=== PATIENT | male | born 1990 | race Caucasian/White ===

== ENCOUNTER 2018-11-15 19:47 | Emergency (ER) | payer BC, OTHER ==
[2018-11-15 20:05] VITALS: BP 186/98
[2018-11-15] MEDS ORDERED: KETOROLAC TROMETHAMINE 60 MG/2 ML SDV IM ONE (20:52)
--- NOTE | 2018-11-15 20:54 | ER Document Report ---
ED Medical Screen (RME) - General Chief Complaint: Flank Pain Stated Complaint: BACK PAIN Time Seen by Provider: 11/15/18 20:52 Mode of Arrival: Ambulatory Information source: Patient Notes: 28-year-old male presented to ED for complaint of right flank pain. He states he came home from work and went to lay down and had sudden pain about 330 4:00. He states is very sharp. He denies any nausea or vomiting. He denies any injuries that should cause him to have pain in this area. He states he has not lifted anything to cause pain in this area. He is alert oriented respirations regular and unlabored speaking in full sentences walks with a even steady gait. He states he is on metoprolol for tachycardia. I have greeted and performed a rapid initial assessment of this patient. A c omprehensive ED assessment and evaluation of the patient, analysis of test results and completion of medical decision making process will be conducted by an additional ED providers. TRAVEL OUTSIDE OF THE [place] IN LAST 30 DAYS: No - Related Data Allergies/Adverse Reactions: Penicillins Allergy (Verified 09/14/17 20:42) Past Medical History - Social History Frequency of alcohol use: None Drug Abuse: None Renal/ Medical History: Denies: Hx Peritoneal Dialysis Physical Exam - Vital signs Vitals: Temp Pulse Resp BP Pulse Ox 98.5 F 74 15 186/98 H 99 11/15/18 20:04 11/15/18 20:04 11/15/18 20:04 11/15/18 20:04 11/15/18 20:04 Course - Vital Signs Vital signs: Temp Pulse Resp BP Pulse Ox 98.5 F 74 15 186/98 H 99 11/15/18 20:04 11/15/18 20:04 11/15/18 20:04 11/15/18 20:04 11/15/18 20:04
[2018-11-15 21:42] LABS: ABSOLUTE BASOPHILS # (AUTO) 0.1 10^3/uL (0.0-0.2); ABSOLUTE LYMPHOCYTES (AUTO) 1.1 10^3/uL (0.5-4.7); ABSOLUTE MONOCYTES (AUTO) 0.4 10^3/uL (0.1-1.4); ABSOLUTE NEUT (AUTO) 10.7 10^3/uL (1.7-8.2); BASOPHILS % (AUTO) 0.5 % (0-2); EOSINOPHILS % (AUTO) 0.4 % (0-6); HEMATOCRIT 46.2 % (37.9-51.0); HEMOGLOBIN 15.6 g/dL (13.5-17.0); LYMPHOCYTES % (AUTO) 9.1 % (13-45); MEAN CORPUSCULAR HGB CONC 33.8 g/dL (32.0-36.0); MEAN CORPUSCULAR VOLUME 83 fl (80-97); MONOCYTES % (AUTO) 3.4 % (3-13); PLATELET COUNT 267 10^3/uL (150-450); RED BLOOD COUNT 5.56 10^6/uL (4.35-5.55); RED CELL DISTRIBUTION WIDTH 14.1 % (11.5-14.0); SEGMENTED NEUTROPHILS % (AUTO) 86.6 % (42-78); TOTAL CELLS COUNTED % (AUTO) 100 %; WHITE BLOOD COUNT 12.3 10^3/uL (4.0-10.5)
[2018-11-15 22:20] LABS: ALBUMIN 5.2 g/dL (3.5-5.0); ALKALINE PHOSPHATASE 66 U/L (38-126); ANION GAP 16 (5-19); ASPARTATE AMINO TRANSFERASE 26 U/L (17-59); BILIRUBIN,DIRECT 0.4 mg/dL (0.0-0.4); BILIRUBIN,TOTAL 0.5 mg/dL (0.2-1.3); BLOOD UREA NITROGEN 20 mg/dL (7-20); CALCIUM 10.4 mg/dL (8.4-10.2); CARBON DIOXIDE 23 mmol/L (22-30); CHLORIDE 100 mmol/L (98-107); GLUCOSE 100 mg/dL (75-110); POTASSIUM 4.6 mmol/L (3.6-5.0); TOTAL PROTEIN 8.4 g/dL (6.3-8.2)
[2018-11-15 23:02] LABS: APPEARANCE,URINE CLEAR; BILIRUBIN,URINE NEGATIVE (NEGATIVE); COLOR,URINE YELLOW; GLUCOSE, URINE NEGATIVE (NEGATIVE); KETONES,URINE 80 mg/dL (NEGATIVE); LEUKOCYTE ESTERASE,URINE NEGATIVE (NEGATIVE); NITRITE,URINE NEGATIVE (NEGATIVE); PROTEIN,URINE 30 mg/dL (NEGATIVE); URINE SPECIFIC GRAVITY 1.026; UROBILINOGEN,URINE NEGATIVE mg/dL (<2.0)
--- NOTE | 2018-11-15 23:30 | RADIOLOGY REPORT (SQ) ---
EXAM DESCRIPTION: CT ABDOMEN PELVIS WITHOUT IV CONTRAST COMPLETED DATE/TME: 11/15/2018 20:52 CLINICAL HISTORY: 28 years, Male, right flank pain COMPARISON: None. TECHNIQUE: 490 Images stored on PACS. All CT scanners at this facility use dose modulation, iterative reconstruction, and/or weight based dosing when appropriate to reduce radiation dose to as low as reasonably achievable (ALARA). [facility]: Dose Right [facility]: CareDose [facility]: Dose Right [facility]: Teradose 4D [facility]: Smart Spurfly LIMITATIONS: None. FINDINGS: The visualized lung bases are unremarkable. Osseous structures are grossly intact. Fatty infiltrative change to the liver. Splenomegaly at 14.8 cm. The adrenal glands, pancreas, left kidney are unremarkable. The gallbladder is present. Irregular contour to the right kidney likely reflects partially exophytic hyperdense right renal cyst. There is mild right hydroureteronephrosis secondary to a 1 to 2 mm right UVJ calculus. No gross evidence for bowel obstruction. No free air or free fluid. Appendix not well seen. No pericecal inflammation IMPRESSION: Mild right hydroureteronephrosis secondary to a 1 to 2 mm right UVJ calculus. Fatty liver. Splenomegaly at 14.8 cm. Probable partially exophytic hyperdense right renal cyst. This could be managed nonemergently with multiphasic MRI or CT TECHNICAL DOCUMENTATION: Quality ID # 436: Final reports with documentation of one or more dose reduction techniques (e.g., Automated exposure control, adjustment of the mA and/or kV according to patient size, use of iterative reconstruction technique) copyright 2011 [employer]- All Rights Reserved
--- NOTE | 2018-11-15 23:39 | ER Document Report ---
ED General - General Chief Complaint: Flank Pain Stated Complaint: BACK PAIN Time Seen by Provider: 11/15/18 20:52 Primary Care Provider: CHAYITO GOLDSTEIN MD [EMERITUS] - Follow up in 3-5 days Mode of Arrival: Ambulatory Information source: Patient, [facility] Records Notes: 28-year-old male with no reported past medical history presents with complaint of right flank pain that started 8 hours prior to arrival while at rest. Patient describes the pain as sharp, intermittent and without radiation. Patient rates the pain as severe. He did receive Toradol prior to my exam and states he is much more comfortable now. Patient denies prior similar symptoms, associated nausea, fever, chills, vomiting, abdominal pain, low back pain, injury. He states he does work at a [employer] and does do heavy lifting. He denies any aggravating or alleviating factors. Mother was at the bedside states that the patient was in tears. Denies history of kidney stones. He is currently on the keto diet. TRAVEL OUTSIDE OF THE [place] IN LAST 30 DAYS: No - HPI Onset: This afternoon Onset/Duration: Sudden, Better Quality of pain: Sharp Severity: Moderate Pain Level: 1 Associated symptoms: denies: Chest pain, Chills, Productive cough, Fever, Nausea, Vomiting, Shortness of breath, Sweating, Weakness Exacerbated by: Denies Relieved by: Denies Similar symptoms previously: No Recently seen / treated by doctor: No - Related Data Allergies/Adverse Reactions: Penicillins Allergy (Verified 09/14/17 20:42) Past Medical History - General Information source: Patient - Social History Smoking Status: Never Smoker Frequency of alcohol use: None Drug Abuse: None Lives with: Family Family History: Reviewed & Not Pertinent Patient has suicidal ideation: No Patient has homicidal ideation: No - Medical History Medical History: Negative Renal/ Medical History: Denies: Hx Peritoneal Dialysis Review of Systems - Review of Systems Notes: REVIEW OF SYSTEMS: CONSTITUTIONAL : Denies fever, chills, or sweats. Denies recent illness. Denies weight loss, recent hospitalizations. EENT: Denies visual changes, eye pain. Denies sore throat, oral lesions, difficulty swallowing. CARDIOVASCULAR: Denies chest pain. Denies palpitations. Denies lower extremity edema. RESPIRATORY: Denies cough. Denies shortness of breath, wheezing. GASTROINTESTINAL: Denies abdominal pain or distention. Denies nausea, vomiting, or diarrhea. Denies blood in vomitus, stools, or per rectum. Denies black, tarry stools. Denies constipation. GENITOURINARY: Denies difficulty urinating, painful urination, frequency, blood in urine, testicular pain or penile discharge. MUSCULOSKELETAL: Denies neck pain or stiffness. Denies joint pain or swelling. SKIN: Denies rash, lesions or sores. HEMATOLOGIC : Denies easy bruising or bleeding. LYMPHATIC: Denies swollen glands. NEUROLOGICAL: Denies confusion or altered mental status. Denies loss of consciousness. Denies dizziness or lightheadedness. Denies headache. Denies weakness or paralysis. Denies problems difficulty with ambulation, slurred speech. Denies sensory loss, numbness, or tingling. Denies seizures. PSYCHIATRIC: Denies anxiety or stress. Denies depression, suicidal ideation, or Physical Exam - Vital signs Vitals: Temp Pulse Resp BP Pulse Ox 98.5 F 74 15 186/98 H 99 11/15/18 20:04 11/15/18 20:04 11/15/18 20:04 11/15/18 20:04 11/15/18 20:04 - Notes Notes: PHYSICAL EXAMINATION: GENERAL: Well-appearing, well-nourished and in no acute distress. HEAD: Atraumatic, normocephalic. EYES: Pupils equal round and reactive to light, extraocular movements intact, sclera anicteric, conjunctiva are normal. ENT: Nares patent, oropharynx clear without exudates. Moist mucous membranes. NECK: Normal range of motion, supple without lymphadenopathy LUNGS: Breath sounds clear to auscultation bilaterally and equal. No wheezes rales or rhonchi. HEART: Regular rate and rhythm without murmurs ABDOMEN: Soft, nontender, nondistended abdomen. No guarding, no rebound. No masses appreciated. CVA tenderness Musculoskeletal: Normal range of motion, no pitting or edema. No cyanosis. NEUROLOGICAL: Cranial nerves grossly intact. Normal speech, normal gait. Normal sensory, motor exams PSYCH: Normal mood, normal affect. SKIN: Warm, Dry, normal turgor, no rashes or lesions noted. Course - Re-evaluation Re-evalutation: 11/15/18 23:42 Laboratory 11/15/18 11/15/18 11/15/18 21:10 21:31 21:31 WBC 12.3 H RBC 5.56 H Hgb 15.6 Hct 46.2 MCV 83 MCH 28.0 MCHC 33.8 RDW 14.1 H Plt Count 267 Lymph % (Auto) 9.1 L [place] % (Auto) 3.4 Eos % (Auto) 0.4 Baso % (Auto) 0.5 Absolute Neuts (auto) 10.7 H Absolute Lymphs (auto) 1.1 Absolute Monos (auto) 0.4 Absolute Eos (auto) 0.0 Absolute Basos (auto) 0.1 Seg Neutrophils % 86.6 H Sodium 139.0 Potassium 4.6 Chloride 100 Carbon Dioxide 23 Anion Gap 16 BUN 20 Creatinine 1.24 Est GFR ( Amer) > 60 Est GFR (MDRD) Non-Af > 60 Glucose 100 Calcium 10.4 H Total Bilirubin 0.5 Direct Bilirubin 0.4 Neonat Total Bilirubin Not Reportable Neonat Direct Bilirubin Not Reportable Neonat Indirect Bili Not Reportable AST 26 ALT 42 Alkaline Phosphatase 66 Total Protein 8.4 H Albumin 5.2 H Lipase 87.8 Urine Color YELLOW Urine Appearance CLEAR Urine pH 5.0 Ur Specific [place] 1.026 Urine Protein 30 H Urine Glucose (UA) NEGATIVE Urine Ketones 80 H Urine Blood LARGE H Urine Nitrite NEGATIVE Urine Bilirubin NEGATIVE Urine Urobilinogen NEGATIVE Ur Leukocyte Esterase NEGATIVE Urine WBC (Auto) 2 Urine RBC (Auto) 97 U Hyaline Cast (Auto) 1 Squamous Epi Cells Auto <1 Urine Mucus (Auto) RARE Urine Ascorbic Acid NEGATIVE Abdomen/Pelvis CT 11/15/18 20:52 IMPRESSION: Mild right hydroureteronephrosis secondary to a 1 to 2 mm right UVJ calculus. Fatty liver. Splenomegaly at 14.8 cm. Probable partially exophytic hyperdense right renal cyst. This could be managed nonemergently with multiphasic MRI or CT TECHNICAL DOCUMENTATION: Quality ID # 436: Final reports with documentation of one or more dose reduction techniques (e.g., Automated exposure control, adjustment of the mA and/or kV according to patient size, use of iterative reconstruction technique) copyright 2011 [employer]- All Rights Reserved Temp Pulse Resp BP Pulse Ox 98.5 F 74 15 186/98 H 99 11/15/18 20:04 11/15/18 20:04 11/15/18 20:04 11/15/18 20:04 11/15/18 20:04 Presents with findings consistent with acute nephrolithiasis. Urinalysis does show hematuria. Laboratory otherwise unremarkable. Pain was able to be controlled here in the emergency department. Patient is tolerating oral intake. Clinical history is not consistent with an acute abdominal aneurysm or dissection, GA, or pulmonary embolus. Urinalysis does not show findings consistent with an infected stone. Vitals have remained within normal limits. Patient will be discharged with recommendations to follow-up with urology, pain medications, and return precautions. They are in agreement with this plan and verbalized indications return to emergency department. 11/16/18 15:57 Incidental findings discussed with the patient and family who is at the bedside. They were provided a copy of the patient's CAT scan report. Patient was evaluated and treated as appropriate for the patient's presenting symptoms and complaint, with consideration of any critical or life threatening conditions that may be associated with their obtained history and exam as noted above. All results were discussed with patient and his family members were at the bedside. Patient provided the opportunity to ask questions, and express concerns. Patient was educated on treatments based on their presumed diagnosis as noted above. At this time we will discharge the patient with return precautions and follow-up recommendations. Verbal discharge instructions given a the bedside. Medication warnings reviewed. Patient is in agreement with this plan and has verbalized understanding of return precautions. After careful consideration I feel that that patient can be safely discharged from the emergency department, they were advised to followup with a primary care physician in 2-3 days. Dictation on this chart was performed using voice recognition software and may result in unintended grammatical, spelling, syntax or errors. - Vital Signs Vital signs: Temp Pulse Resp BP Pulse Ox 98.5 F 74 15 186/98 H 99 11/15/18 20:04 11/15/18 20:04 11/15/18 20:04 11/15/18 20:04 11/15/18 20:04 - Laboratory Result Diagrams: 11/15/18 21:31 11/15/18 21:31 Laboratory results interpreted by me: 11/15/18 11/15/18 11/15/18 21:10 21:31 21:31 WBC 12.3 H RBC 5.56 H RDW 14.1 H Lymph % (Auto) 9.1 L Absolute Neuts (auto) 10.7 H Seg Neutrophils % 86.6 H Calcium 10.4 H Total Protein 8.4 H Albumin 5.2 H Urine Protein 30 H Urine Ketones 80 H Urine Blood LARGE H - Diagnostic Test Radiology reviewed: Image reviewed, Reports reviewed Discharge - Discharge Clinical Impression: Kidney stone on right side, Elevated blood pressure reading, Right flank pain, Splenomegaly, Renal cyst, right, Fatty liver Hematuria Qualifiers: Hematuria type: unspecified type Qualified Code(s): R31.9 - Hematuria, unspecified Condition: Good Disposition: HOME, SELF-CARE Instructions: Hematuria (OM), Kidney Stone (OM) Additional Instructions: Your symptoms should improve over the course of the next one week. If you continue to have pain for greater than one week or your pain is not controlled with the pain medications that you have been sent home with you need to return to the emergency department. Please also return if you develop fever, persistent vomiting, or any other symptoms that are concerning to you. You should take Toradol every 6 hours for pain. You are also been sent home with a medication called Flomax to help pass the stone. You've been given Zofran to assist with nausea. Please follow-up with urology in the next 2-3 days. Prescriptions: Ketorolac Tromethamine [Toradol 10 mg Tablet] 10 mg PO Q6HP PRN #16 tablet PRN Reason: Tamsulosin HCl [Flomax 0.4 mg Cap.sr] 0.4 mg PO DAILY #7 cap.sr.24h Hydrocodone/Acetaminophen [[place] 5-325 mg Tablet] 1 tab PO Q6H #12 tablet Ondansetron [Zofran Odt 4 mg Tablet] 1 - 2 tab PO Q4H PRN #15 tab.rapdis PRN Reason: For Nausea/Vomiting Forms: Elevated Blood Pressure Referrals: CHAYITO GOLDSTEIN MD [EMERITUS] - Follow up in 3-5 days
[2018-11-15] MEDS ORDERED: TAMSULOSIN HCL 0.4 MG CAP.SR.24H PO ONE (23:42)
[2018-11-16] MEDS ORDERED: HYDROCODONE/ACETAMINOPHEN 5-325 MG (6 TAB/ER DISP) PO PRN (00:42)
== END 2018-11-16 00:49 | disposition home or self-care (01) ==
LOC: ER 19:47
DX: N20.0 Calculus of kidney (principal); R03.0 Elevated blood-pressure reading, without diagnosis of hypertension; R16.1 Splenomegaly, not elsewhere classified; Q61.01 Congenital single renal cyst; K76.0 Fatty (change of) liver, not elsewhere classified; R31.9 Hematuria, unspecified; R10.9 Unspecified abdominal pain; Z88.0 Allergy status to penicillin
CPT/HCPCS: 99284; 96372; 36415; 83690; 85025; 80053; 81001; 74176; J1885